=== PATIENT | female | born 1970 | race Caucasian/White ===

== ENCOUNTER 2016-12-06 07:44 | Day surgery (SDC) | payer BC ==
[2016-12-06] MEDS ORDERED: Lactated Ringers 1,000 ML IV SCH (08:30)
[2016-12-06] MEDS ORDERED: Rocuronium 50 MG/5 ML Vial IV ONE (09:00)
[2016-12-06] MEDS ORDERED: Dexamethasone 4 MG/ML 5 ML MDV IVPUSH ONE (09:00)
[2016-12-06] MEDS ORDERED: Nalbuphine 10 MG/1 ML Vial IV ONE (09:00)
[2016-12-06] MEDS ORDERED: Propofol 200 MG/20 ML SDV IV ONE (09:00)
[2016-12-06] MEDS ORDERED: Midazolam 1 MG/ML 2 ML SDV IV ONE (09:00)
[2016-12-06] MEDS ORDERED: Lactated Ringers 1,000 ML IV ONE (09:00)
[2016-12-06] MEDS ORDERED: Ketorolac 30 MG/ML SDV IVPUSH ONE (09:00)
[2016-12-06] MEDS ORDERED: Ondansetron 4 MG/2 ML SDV IVPUSH ONE (09:00)
[2016-12-06] MEDS ORDERED: fentaNYL 100 MCG/2 ML SDV IV ONE (09:00)
[2016-12-06] MEDS ORDERED: Lidocaine 2% 100 MG/5 ML Syringe IVPUSH ONE (09:00)
[2016-12-06] MEDS ORDERED: Neostigmine Methylsulfate 1 MG/ML 5 ML Syringe IV ONE (09:00)
[2016-12-06] MEDS ORDERED: Bupivacaine 0.5% 30 ML SDV ONE (09:26)
[2016-12-06] MEDS ORDERED: Lidocaine 1% with EPINEPHrine 1:100,000 20 ML MDV ONE (09:26)
--- NOTE | 2016-12-06 09:46 | PCM.OPNOTE ---
- General Post-Op/Procedure Note Date of Surgery/Procedure: 12/06/16 Operative Procedure(s): umbilical hernia repair with mesh Findings: umbilical hernia 3x2 cm Pre Op Diagnosis: umbilical hernia Post-Op Diagnosis: Same Anesthesia Technique: General ET tube, Local (5 ml 1% lido with epi/0.5% buvipicaine) Primary Surgeon: Zeyad Mi Anesthesia Provider: Cherelle France Pathology: none Complications: None Condition: Good Free Text/Narrative:: see dictation
[2016-12-06 12:33] VITALS: BP 128/72
--- NOTE | 2016-12-06 14:06 | OR ---
DATE OF OPERATION: 12/06/2016 SURGEON: Zeyad Mi MD PROCEDURE PERFORMED: Umbilical hernia repair. PREOPERATIVE DIAGNOSIS: Umbilical hernia without obstruction or gangrene. POSTOPERATIVE DIAGNOSIS: Umbilical hernia without obstruction or gangrene. INDICATIONS FOR PROCEDURE: This is a 46-year-old, white female, who is referred with a symptomatic abdominal umbilical hernia. She was offered and accepted repair. After an excellent general anesthetic was administered, the patient was prepped and draped in usual sterile manner. Five grand total of 5 mL of 1:1 mixture of 1% lidocaine with epinephrine 0.5% bupivacaine was used to infiltrate our trocar site and after doing this, a curvilinear incision was then made. Sharp and blunt dissection was carried out exposing the hernia sac circumferentially down to the level of the fascia. Hernia sac was entered and transected off the posterior aspect of the umbilicus. The preperitoneal fat was reduced and returned to the intraabdominal cavity. The sac itself was excised and passed off the field. A Ventralex ST hernia patch, reference #[id number], lot #[id number] with a use by date of 2018-06-28 was then inserted into the patient's abdominal cavity. This was a size 6.4 cm in diameter. The straps were then elevated, the fascia was closed incorporating the posterior mesh into her fascia line, and the straps were then excised. The umbilicus was then tacked to the anterior abdominal wall with [id number] 0 Vicryl and 4-0 Vicryl was used to close the skin. Needle, sponge, and instrument counts were reported as correct. The patient was taken to recovery room in good condition having tolerated the procedure well. /[id number] /MODL
== END 2016-12-06 12:25 | disposition home or self-care (01) ==
LOC: FB.SDS 07:44
PROVIDERS: ATTEND Surgery
DX: K42.9 Umbilical hernia without obstruction or gangrene (principal); E66.9 Obesity, unspecified; E78.5 Hyperlipidemia, unspecified; Z88.1 Allergy status to other antibiotic agents; Z88.8 Allergy status to other drugs, medicaments and biological substances; Z79.899 Other long term (current) drug therapy; Z68.33 Body mass index [BMI] 33.0-33.9, adult; Z98.890 Other specified postprocedural states
CPT/HCPCS: 49585; 81025; C1781; J1100; J1885; J2250; J2300; J2405; J2704; J3010; J7120

== ENCOUNTER 2017-06-07 21:49 | Emergency (ER) | payer BC ==
[2017-06-07] MEDS ORDERED: Ketorolac 30 MG/ML SDV IVPUSH ONE (22:17)
[2017-06-07] MEDS ORDERED: Ondansetron 4 MG/2 ML SDV IVPUSH ONE (22:17)
--- NOTE | 2017-06-07 22:22 | EDM.PDOC ---
ED HPI GENERAL MEDICAL PROBLEM - General Chief Complaint: Genitourinary Problem Stated Complaint: POSS KIDNEY STONE Time Seen by Provider: 06/07/17 21:50 Source of Information: Reports: Patient, Family - History of Present Illness INITIAL COMMENTS - FREE TEXT/NARRATIVE: 47 y.o.w.f. came to the ed after she noticed pain at her right flank. Pt has a h /o urolithiasis. Pt is currently not sexually active. No trauma. Denies . No N/V/D no F/C or any other acute medical issues. BP 120/68 RR 16 Temp 36.3 Pulse ox 97% HR 73 Onset: Today Onset Date: 06/07/17 Onset Time: 20:00 Duration: Hour(s):, Intermittent Location: Reports: Abdomen (right flank) Quality: Reports: Ache, Burning, Dull Severity: Mild Improves with: Reports: Rest Worsens with: Reports: Movement Context: Reports: Other (right flank pain radiating to roght groin) right flank Pain Score (Numeric/FACES): 7 - Related Data Allergies Allergy/AdvReac Type Severity Reaction Status Date / Time cefaclor [Cefaclor] Allergy Hives Verified 06/07/17 22:17 citalopram [From Celexa] Allergy UNKNOWN Verified 06/07/17 22:17 doxycycline Allergy UNKNOWN Verified 06/07/17 22:17 Home Meds: Home Meds L. Acidophilus/Lactobac Spor [Acidophilus X-Str Captab] 1 each PO DAILY [History] Mirtazapine [Remeron] 15 mg PO BEDTIME 12/05/16 [History] Multivitamin [Multivitamins] 1 each PO DAILY 12/05/16 [History] Rosuvastatin [Crestor] 30 mg PO DAILY 12/05/16 [History] Celecoxib [CeleBREX] 200 mg PO BID #14 cap 12/06/16 [Rx] Tamsulosin HCl [Flomax] 0.4 mg PO DAILY #4 cap.er.24h 06/07/17 [Rx] Past Medical History HEENT History: Reports: None Cardiovascular History: Reports: High Cholesterol Respiratory History: Reports: None Gastrointestinal History: Reports: None Genitourinary History: Reports: Renal Calculus, Other (See Below) Other Genitourinary History: CANDIDIASIS OF VULVA AND VAGINA HIV CTS SPECIALIST History: Reports: Musculoskeletal History: Reports: Fracture, Other (See Below) Other Musculoskeletal History: TIBIAL PLATEAU FX Neurological History: Reports: None Psychiatric History: Reports: None Endocrine/Metabolic History: Reports: Obesity/BMI 30+ Hematologic History: Reports: None Immunologic History: Reports: None Oncologic (Cancer) History: Reports: None Dermatologic History: Reports: None - Infectious Disease History Infectious Disease History: Reports: Chicken Pox - Past Surgical History HEENT Surgical History: Reports: None Cardiovascular Surgical History: Reports: None Respiratory Surgical History: Reports: None GI Surgical History: Reports: None, Hernia, Abdominal Female Surgical History: Reports: Section Endocrine Surgical History: Reports: None Neurological Surgical History: Reports: None Musculoskeletal Surgical History: Reports: ORIF, Other (See Below) Other Musculoskeletal Surgeries/Procedures:: ORIF LEFT TIBIAL PLATEAU Dermatological Surgical History: Reports: None Social & Family History - Tobacco Use Smoking Status *Q: Never Smoker - Caffeine Use Caffeine Use: Reports: Tea - Recreational Drug Use Recreational Drug Use: No ED ROS GENERAL - Review of Systems Review Of Systems: See Below Constitutional: Reports: No Symptoms HEENT: Reports: No Symptoms Respiratory: Reports: No Symptoms Cardiovascular: Reports: No Symptoms Endocrine: Reports: No Symptoms GI/Abdominal: Reports: No Symptoms : Reports: Flank Pain (right) Musculoskeletal: Reports: No Symptoms Skin: Reports: No Symptoms Neurological: Reports: No Symptoms Psychiatric: Reports: No Symptoms Hematologic/Lymphatic: Reports: No Symptoms Immunologic: Reports: No Symptoms ED EXAM, RENAL/ - Physical Exam Exam: See Below Exam Limited By: No Limitations General Appearance: Alert, WD/WN, Mild Distress Eye Exam: Bilateral Eye: Normal Inspection Ears: Normal External Exam Nose: Normal Inspection Throat/Mouth: Normal Inspection Head: Atraumatic, Normocephalic Neck: Normal Inspection Respiratory/Chest: No Respiratory Distress, Lungs Clear, Normal Breath Sounds Cardiovascular: Normal Peripheral Pulses, Regular Rate, Rhythm, No Edema, Other GI/Abdominal: Normal Bowel Sounds, Soft, Tender (right flank) (Female) Exam: Deferred Rectal (Female) Exam: Deferred Back Exam: Normal Inspection, CVA Tenderness (R) Extremities: Normal Inspection, Normal Range of Motion, Non-Tender, No Pedal Edema, Normal Capillary Refill Neurological: Alert, Oriented, CN II-XII Intact, Normal Cognition, Normal Gait, No Motor/Sensory Deficits Psychiatric: Normal Affect, Normal Mood Skin Exam: Warm, Dry, Intact, Normal Color, No Rash Lymphatic: No Adenopathy Course - Vital Signs Text/Narrative:: 47 y.o.w.f. came to the ed after she noticed pain at her right flank. Pt has a h /o urolithiasis. Pt is currently not sexually active. No trauma. Denies . No N/V/D no F/C or any other acute medical issues. BP 120/68 RR 16 Temp 36.3 Pulse ox 97% HR 73 PE: WNWD W F with right flank pain Imagin mm stone in posterior urinary bladder. labs: WBC 12.5. Impression: Microsc hematuria, passed kidney stone in urinary bladder. TxL Toradol. Pt refused Jewel max Reexam: Improved Plan: D/C with instructions Last Recorded V/S: Last Vital Signs Temp 37.3 C 06/07/17 21:50 Pulse 73 06/07/17 21:50 Resp 18 06/07/17 23:25 BP 122/72 06/07/17 23:25 Pulse Ox 100 06/07/17 23:25 - Orders/Labs/Meds Orders: Active Orders 24 hr Category Date Time Status Abdomen Pelvis wo Cont [CT] Stat Exams 06/07/17 22:18 Taken Sodium Chloride 0.9% [Saline Flush] Med 06/07/17 22:17 Active 10 ml FLUSH ASDIRECTED PRN Peripheral IV Insertion Adult [OM.PC] Routine Oth 06/07/17 22:17 Ordered Medication Orders Sodium Chloride (Saline Flush) 10 ml FLUSH ASDIRECTED PRN PRN Reason: Keep Vein Open Last Admin: 06/07/17 22:52 Dose: 10 ml Admin: 06/07/17 22:48 Dose: 10 ml Labs: Laboratory Tests 06/07/17 06/07/17 06/07/17 Range/Units 22:05 22:30 22:30 WBC 12.4 H (4.5-12.0) X10-3/uL RBC 3.83 (3.23-5.20) x10(6)uL Hgb 11.2 L (11.5-15.5) g/dL Hct 32.8 (30.0-51.3) % MCV 85.5 (80-96) fL MCH 29.3 (27.7-33.6) pg MCHC 34.2 (32.2-35.4) g/dL RDW 17.5 H (11.5-15.5) % Plt Count 173 (125-369) X10(3)uL MPV 9.1 (7.4-10.4) fL Neut % (Auto) 86.7 H (46-82) % Lymph % (Auto) 8.5 L (13-37) % [place] % (Auto) 4.2 (4-12) % Eos % (Auto) 1 (1.0-5.0) % Baso % (Auto) 0 (0-2) % Neut # (Auto) 10.7 H (1.6-8.3) # Lymph # (Auto) 1.1 (0.6-5.0) # [place] # (Auto) 0.5 (0.0-1.3) # Eos # (Auto) 0.1 (0.0-0.8) # Baso # (Auto) 0.0 (0.0-0.2) # Sodium 141 (135-145) mmol/L Potassium 3.7 (3.5-5.3) mmol/L Chloride 105 (100-110) mmol/L Carbon Dioxide 27 (21-32) mmol/L BUN 17 (7-18) mg/dL Creatinine 0.7 (0.55-1.02) mg/dL Est Cr Clr Drug Dosing 87.64 mL/min Estimated GFR (MDRD) > 60 (>60) BUN/Creatinine Ratio 24.3 H (9-20) Glucose 150 H (80-116) mg/dL Calcium 9.0 (8.6-10.2) mg/dL Urine Color Yellow (YELLOW) Urine Appearance Slightly cloudy (CLEAR) Urine pH 5.0 (5.0-6.5) Ur Specific [place] 1.030 H (1.010-1.025) Urine Protein Negative (NEGATIVE) mg/dL Urine Glucose (UA) Normal (NEGATIVE) mg/dL Urine Ketones Negative (NEGATIVE) mg/dL Urine Occult Blood Moderate H (NEGATIVE) Urine Nitrite Negative (NEGATIVE) Urine Bilirubin Small H (NEGATIVE) Urine Urobilinogen 1 H (NEGATIVE) mg/dL Ur Leukocyte Esterase Negative (NEGATIVE) Urine RBC 0-5 (0) Urine WBC 0-5 (0) Ur Squamous Epith Cells Moderate H (NS,R,O) Calcium Oxalate Crystal Few H (NS) Urine Bacteria Moderate H (NS) Meds: Medications Generic Name Dose Route Start Last Admin Trade Name Billie PRN Reason Stop Dose Admin Sodium Chloride 10 ml 06/07/17 22:17 06/07/17 22:52 Saline Flush FLUSH 10 ml ASDIRECTED PRN Administration Keep Vein Open Discontinued Medications Generic Name Dose Route Start Last Admin Trade Name Billie PRN Reason Stop Dose Admin Ketorolac Tromethamine 30 mg 06/07/17 22:17 06/07/17 22:50 Toradol IVPUSH 06/07/17 22:18 30 mg ONETIME ONE Administration Ondansetron HCl 8 mg 06/07/17 22:17 06/07/17 22:50 Zofran IVPUSH 06/07/17 22:18 8 mg ONETIME ONE Administration Departure - Departure Time of Disposition: 23:23 Disposition: Home, Self-Care 01 Condition: Good Clinical Impression: Urolithiasis Qualifiers: Urinary calculus location: bladder Qualified Code(s): N21.0 - Calculus in bladder - Discharge Information Prescriptions: Tamsulosin HCl [Flomax] 0.4 mg PO DAILY #4 cap.er.24h Instructions: Kidney Stones, [id number] Referrals: Fernando Viera MD [Primary Care Provider] - Forms: ED Department Discharge Additional Instructions: Please increase water intake, please take flomax for spasm, Motrin for pain as needed. Please bring the collected kidney stone to your primary medical doctor at clinic. Please come back if your symptoms get worse acutely - My Orders Last 24 Hours: My Active Orders 06/07/17 22:17 Sodium Chloride 0.9% [Saline Flush] 10 ml FLUSH ASDIRECTED PRN Peripheral IV Insertion Adult [OM.PC] Routine 06/07/17 22:18 Abdomen Pelvis wo Cont [CT] Stat - Assessment/Plan Last 24 Hours: My Active Orders 06/07/17 22:17 Sodium Chloride 0.9% [Saline Flush] 10 ml FLUSH ASDIRECTED PRN Peripheral IV Insertion Adult [OM.PC] Routine 06/07/17 22:18 Abdomen Pelvis wo Cont [CT] Stat
[2017-06-07] MEDS: Sodium Chloride 0.9% 10 ML Syringe FLUSH PRN ×2 (22:48→22:52)
[2017-06-07 23:30] VITALS: BP 122/72
== END 2017-06-07 23:35 | disposition home or self-care (01) ==
LOC: FB.ED 21:49
DX: N21.0 Calculus in bladder (principal); N13.30 Unspecified hydronephrosis; E78.00 Pure hypercholesterolemia, unspecified; Z88.1 Allergy status to other antibiotic agents; Z88.8 Allergy status to other drugs, medicaments and biological substances; Z79.899 Other long term (current) drug therapy
CPT/HCPCS: 36415; 74176; 80048; 81001; 85025; 96374; 96375; 99284; J1885; J2405; J7050

== ENCOUNTER 2018-03-21 02:57 | Emergency (ER) | payer BC ==
[2018-03-21] MEDS ORDERED: Sodium Chloride 0.9% 10 ML Syringe FLUSH PRN (03:15)
[2018-03-21] MEDS ORDERED: Sodium Chloride 0.9% 1,000 ML IV ONE (03:15)
[2018-03-21] MEDS ORDERED: Ondansetron 4 MG/2 ML SDV IVPUSH ONE (03:16)
[2018-03-21] MEDS ORDERED: HYDROmorphone 2 MG/ML SDV IVPUSH ONE (03:16)
[2018-03-21] MEDS ORDERED: Ketorolac 30 MG/ML SDV IVPUSH ONE (03:19)
--- NOTE | 2018-03-21 03:24 | EDM.PDOC ---
ED HPI GENERAL MEDICAL PROBLEM - General Chief Complaint: Genitourinary Problem Stated Complaint: KIDNEY STONES Time Seen by Provider: 03/21/18 03:20 Source of Information: Reports: Patient History Limitations: Reports: No Limitations - History of Present Illness INITIAL COMMENTS - FREE TEXT/NARRATIVE: Presents with right flank pain x 3 hours associated with N/V. Has a history of kidney stones. Onset Date: 03/21/18 Onset Time: 00:30 Duration: Hour(s): (3) Location: Reports: Back Quality: Reports: Dull Severity: Moderate Associated Symptoms: Reports: Nausea/Vomiting - Related Data Allergies Allergy/AdvReac Type Severity Reaction Status Date / Time cefaclor [Cefaclor] Allergy Hives Verified 03/21/18 04:08 citalopram [From Celexa] Allergy Nausea Verified 03/21/18 04:08 doxycycline Allergy Itching Verified 03/21/18 04:08 Home Meds: Home Meds L. Acidophilus/Lactobac Spor [Acidophilus X-Str Captab] 1 each PO DAILY [History] Mirtazapine [Remeron] 15 mg PO BEDTIME 12/05/16 [History] Multivitamin [Multivitamins] 1 each PO DAILY 12/05/16 [History] Rosuvastatin [Crestor] 30 mg PO DAILY 12/05/16 [History] Acetaminophen/oxyCODONE [Percocet 325-5 MG] 1 - 2 each PO Q6H PRN #20 tab [Rx] Ondansetron HCl [Zofran] 8 mg PO Q8H PRN #10 tablet 03/21/18 [Rx] Tamsulosin [Tamsulosin 24 Hr] 0.4 mg PO DAILY #10 cap.er 03/21/18 [Rx] Past Medical History HEENT History: Reports: None Cardiovascular History: Reports: High Cholesterol Respiratory History: Reports: None Gastrointestinal History: Reports: None Genitourinary History: Reports: Renal Calculus, Other (See Below) Other Genitourinary History: CANDIDIASIS OF VULVA AND VAGINA BI ARCHITECT History: Reports: Musculoskeletal History: Reports: Fracture, Other (See Below) Other Musculoskeletal History: TIBIAL PLATEAU FX Neurological History: Reports: None Psychiatric History: Reports: None Endocrine/Metabolic History: Reports: Obesity/BMI 30+ Hematologic History: Reports: None Immunologic History: Reports: None Oncologic (Cancer) History: Reports: None Dermatologic History: Reports: None - Infectious Disease History Infectious Disease History: Reports: Chicken Pox - Past Surgical History HEENT Surgical History: Reports: None Cardiovascular Surgical History: Reports: None Respiratory Surgical History: Reports: None GI Surgical History: Reports: None, Hernia, Abdominal Female Surgical History: Reports: Section Endocrine Surgical History: Reports: None Neurological Surgical History: Reports: None Musculoskeletal Surgical History: Reports: ORIF, Other (See Below) Other Musculoskeletal Surgeries/Procedures:: ORIF LEFT TIBIAL PLATEAU Dermatological Surgical History: Reports: None Social & Family History - Tobacco Use Smoking Status *Q: Never Smoker - Caffeine Use Caffeine Use: Reports: Tea ED ROS GENERAL - Review of Systems Review Of Systems: ROS reveals no pertinent complaints other than HPI. ED EXAM, GI/ABD - Physical Exam Exam: See Below Exam Limited By: No Limitations General Appearance: Alert, WD/WN, No Apparent Distress Ears: Normal External Exam Nose: Normal Inspection Throat/Mouth: No Airway Compromise Head: Atraumatic, Normocephalic Neck: Full Range of Motion Respiratory/Chest: No Respiratory Distress, Lungs Clear, Normal Breath Sounds Cardiovascular: Regular Rate, Rhythm, No Murmur GI/Abdominal Exam: Normal Bowel Sounds, Soft, Non-Tender, No Distention Back Exam: Normal Inspection. No: CVA Tenderness (R), CVA Tenderness (L) Extremities: Normal Range of Motion Neurological: Alert, No Motor/Sensory Deficits Psychiatric: Normal Affect, Normal Mood Skin Exam: Warm, Dry, Intact Course - Vital Signs Last Recorded V/S: Last Vital Signs Temp 36.8 C 03/21/18 03:05 Pulse 76 03/21/18 03:05 Resp 16 03/21/18 03:05 BP 142/72 H 03/21/18 03:05 Pulse Ox 100 03/21/18 03:05 - Orders/Labs/Meds Orders: Active Orders 24 hr Category Date Time Status Abdomen Pelvis wo Cont [CT] Stat Exams 03/21/18 03:19 Taken Sodium Chloride 0.9% [Saline Flush] Med 03/21/18 03:15 Active 10 ml FLUSH ASDIRECTED PRN Saline Lock Insert [OM.PC] Routine Oth 03/21/18 03:15 Ordered Medication Orders Sodium Chloride (Saline Flush) 10 ml FLUSH ASDIRECTED PRN PRN Reason: Keep Vein Open Labs: Laboratory Tests 03/21/18 03/21/18 03/21/18 Range/Units 03:27 03:27 03:31 WBC 12.5 H (4.5-12.0) X10-3/uL RBC 3.75 (3.23-5.20) x10(6)uL Hgb 11.4 L (11.5-15.5) g/dL Hct 32.4 (30.0-51.3) % MCV 86.3 (80-96) fL MCH 30.5 (27.7-33.6) pg MCHC 35.3 (32.2-35.4) g/dL RDW 16.9 H (11.5-15.5) % Plt Count 162 (125-369) X10(3)uL MPV 10.0 (7.4-10.4) fL Add Manual Diff Yes Neutrophils % (Manual) 80 (46-82) % Band Neutrophils % 2 (0-6) % Lymphocytes % (Manual) 12 L (13-37) % Monocytes % (Manual) 6 (4-12) % Sodium 139 (135-145) mmol/L Potassium 3.4 L (3.5-5.3) mmol/L Chloride 102 (100-110) mmol/L Carbon Dioxide 27 (21-32) mmol/L BUN 12 (7-18) mg/dL Creatinine 0.8 (0.55-1.02) mg/dL Est Cr Clr Drug Dosing TNP Estimated GFR (MDRD) > 60 (>60) BUN/Creatinine Ratio 15.0 (9-20) Glucose 131 H (80-116) mg/dL Calcium 8.7 (8.6-10.2) mg/dL Total Bilirubin 0.7 (0.1-1.3) mg/dL AST 21 (5-25) IU/L ALT 28 (12-36) U/L Alkaline Phosphatase 117 H (56-112) IU/L Total Protein 7.5 (6.0-8.0) g/dL Albumin 3.9 (3.5-5.2) g/dL Globulin 3.6 g/dL Albumin/Globulin Ratio 1.1 Urine Color Yellow (YELLOW) Urine Appearance Slightly cloudy (CLEAR) Urine pH 5.0 (5.0-6.5) Ur Specific [place] 1.030 H (1.010-1.025) Urine Protein Negative (NEGATIVE) mg/dL Urine Glucose (UA) Normal (NEGATIVE) mg/dL Urine Ketones Negative (NEGATIVE) mg/dL Urine Occult Blood Large H (NEGATIVE) Urine Nitrite Negative (NEGATIVE) Urine Bilirubin Negative (NEGATIVE) Urine Urobilinogen Normal (NEGATIVE) mg/dL Ur Leukocyte Esterase Negative (NEGATIVE) Urine RBC 5-10 (0) Urine WBC 0-5 (0) Ur Squamous Epith Cells Few H (NS,R,O) Urine Bacteria Few H (NS) Urine HCG, Qual (NEGATIVE) 03/21/18 Range/Units 03:31 WBC (4.5-12.0) X10-3/uL RBC (3.23-5.20) x10(6)uL Hgb (11.5-15.5) g/dL Hct (30.0-51.3) % MCV (80-96) fL MCH (27.7-33.6) pg MCHC (32.2-35.4) g/dL RDW (11.5-15.5) % Plt Count (125-369) X10(3)uL MPV (7.4-10.4) fL Add Manual Diff Neutrophils % (Manual) (46-82) % Band Neutrophils % (0-6) % Lymphocytes % (Manual) (13-37) % Monocytes % (Manual) (4-12) % Sodium (135-145) mmol/L Potassium (3.5-5.3) mmol/L Chloride (100-110) mmol/L Carbon Dioxide (21-32) mmol/L BUN (7-18) mg/dL Creatinine (0.55-1.02) mg/dL Est Cr Clr Drug Dosing Estimated GFR (MDRD) (>60) BUN/Creatinine Ratio (9-20) Glucose (80-116) mg/dL Calcium (8.6-10.2) mg/dL Total Bilirubin (0.1-1.3) mg/dL AST (5-25) IU/L ALT (12-36) U/L Alkaline Phosphatase (56-112) IU/L Total Protein (6.0-8.0) g/dL Albumin (3.5-5.2) g/dL Globulin g/dL Albumin/Globulin Ratio Urine Color (YELLOW) Urine Appearance (CLEAR) Urine pH (5.0-6.5) Ur Specific [place] (1.010-1.025) Urine Protein (NEGATIVE) mg/dL Urine Glucose (UA) (NEGATIVE) mg/dL Urine Ketones (NEGATIVE) mg/dL Urine Occult Blood (NEGATIVE) Urine Nitrite (NEGATIVE) Urine Bilirubin (NEGATIVE) Urine Urobilinogen (NEGATIVE) mg/dL Ur Leukocyte Esterase (NEGATIVE) Urine RBC (0) Urine WBC (0) Ur Squamous Epith Cells (NS,R,O) Urine Bacteria (NS) Urine HCG, Qual Negative (NEGATIVE) Meds: Medications Generic Name Dose Route Start Last Admin Trade Name Freq PRN Reason Stop Dose Admin Sodium Chloride 10 ml 03/21/18 03:15 Saline Flush FLUSH ASDIRECTED PRN Keep Vein Open Discontinued Medications Generic Name Dose Route Start Last Admin Trade Name Freq PRN Reason Stop Dose Admin Hydromorphone HCl 1 mg 03/21/18 03:16 03/21/18 03:42 Dilaudid IVPUSH 03/21/18 03:17 1 mg ONETIME ONE Administration Sodium Chloride 1,000 mls @ 999 mls/hr 03/21/18 03:15 03/21/18 03:35 Normal Saline IV 03/21/18 04:15 999 mls/hr .BOLUS ONE Administration Ketorolac Tromethamine 30 mg 03/21/18 03:19 03/21/18 03:44 Toradol IVPUSH 03/21/18 03:20 30 mg ONETIME ONE Administration Ondansetron HCl 4 mg 03/21/18 03:16 03/21/18 03:48 Zofran IVPUSH 03/21/18 03:17 4 mg ONETIME ONE Administration - Radiology Interpretation Free Text/Narrative:: CT Abd/Pelvis w/o contrast: 3mm distal right ureteral calculus with moderate hydronephrosis and hydroureter. - Re-Assessments/Exams Free Text/Narrative Re-Assessment/Exam: 03/21/18 04:27 Symptoms have improved Departure - Departure Time of Disposition: 04:27 Disposition: Home, Self-Care 01 Condition: Good Clinical Impression: Ureterolithiasis - Discharge Information *PRESCRIPTION DRUG MONITORING PROGRAM REVIEWED*: Yes *COPY OF PRESCRIPTION DRUG MONITORING REPORT IN PATIENT JM: Not Applicable Prescriptions: Acetaminophen/oxyCODONE [Percocet 325-5 MG] 1 - 2 each PO Q6H PRN #20 tab PRN Reason: Pain Ondansetron HCl [Zofran] 8 mg PO Q8H PRN #10 tablet PRN Reason: Nausea/Vomiting Tamsulosin [Tamsulosin 24 Hr] 0.4 mg PO DAILY #10 cap.er Instructions: Kidney Stones, [id number] Referrals: Fernando Viera MD [Primary Care Provider] - Elder Marin MD [Ordering Only Provider] - Forms: ED Department Discharge Additional Instructions: Fill prescriptions for Flomax, Percocet and Zofran and take as directed. Push fluids. Follow up with Urology 2-3 days. Return to the ER if symptoms worsen. - My Orders Last 24 Hours: My Active Orders 03/21/18 03:15 Sodium Chloride 0.9% [Saline Flush] 10 ml FLUSH ASDIRECTED PRN Saline Lock Insert [OM.PC] Routine 03/21/18 03:19 Abdomen Pelvis wo Cont [CT] Stat - Assessment/Plan Last 24 Hours: My Active Orders 03/21/18 03:15 Sodium Chloride 0.9% [Saline Flush] 10 ml FLUSH ASDIRECTED PRN Saline Lock Insert [OM.PC] Routine 03/21/18 03:19 Abdomen Pelvis wo Cont [CT] Stat
[2018-03-21 04:34] VITALS: BP 135/70
== END 2018-03-21 04:45 | disposition home or self-care (01) ==
LOC: FB.ED 02:57
DX: N13.2 Hydronephrosis with renal and ureteral calculous obstruction (principal); E78.00 Pure hypercholesterolemia, unspecified; Z88.8 Allergy status to other drugs, medicaments and biological substances; Z88.1 Allergy status to other antibiotic agents; Z79.899 Other long term (current) drug therapy
CPT/HCPCS: 36415; 74176; 80053; 81001; 81025; 85025; 96361; 96372; 96374; 96375; 99284; J1170; J1885; J2405; J7030

== ENCOUNTER 2022-06-19 09:09 | Day surgery (SDC) | payer OTHER ==
[2022-06-19] MEDS ORDERED: Ondansetron 4 MG/2 ML SDV IVPUSH ONE (09:10)
[2022-06-19] MEDS ORDERED: Propofol 200 MG/20 ML SDV IV ONE (09:10)
[2022-06-19] MEDS ORDERED: Sodium Chloride 0.9% 10 ML Syringe FLUSH PRN (09:45)
[2022-06-19] MEDS ORDERED: Lactated Ringers 1,000 ML IV SCH (09:45)
[2022-06-19 10:11] VITALS: BP 141/87; PULSE 88
== END 2022-06-19 11:59 | disposition home or self-care (01) ==
LOC: FB.SDS 09:09
PROVIDERS: ATTEND Surgery
DX: Z12.11 Encounter for screening for malignant neoplasm of colon (principal); K57.30 Diverticulosis of large intestine without perforation or abscess without bleeding; F41.9 Anxiety disorder, unspecified; E66.9 Obesity, unspecified; E78.00 Pure hypercholesterolemia, unspecified; G47.00 Insomnia, unspecified; N20.0 Calculus of kidney; Z68.29 Body mass index [BMI] 29.0-29.9, adult; Z88.1 Allergy status to other antibiotic agents; Z88.8 Allergy status to other drugs, medicaments and biological substances; Z79.899 Other long term (current) drug therapy
CPT/HCPCS: 00812; 45378; J2405; J2704; J7120